=== PATIENT | male | born 1945 | race African-American/Black ===

== ENCOUNTER 2020-02-10 11:44 | Emergency (ER) | payer OTHER, MEDICARE ==
[2020-02-10 11:50] VITALS: BMI 29.7
--- NOTE | 2020-02-10 12:19 | PDOC ---
History of Present Illness - General Chief Complaint: Palpitations Stated Complaint: CHEST DISCOMFORT History Source: Patient Exam Limitations: No Limitations - History of Present Illness Initial Comments: 02/10/20 12:18 HPI: This is a 74 y/o male with a PMH of HTN and prostate cancer in remission who is presenting to the ED because of intermittent palpitations for the past few days. He is unsure what brings the palpitations on, but states that sometimes he has had them whenever he sits up from a laying down position. He denies any alleviating factors. He previously had palpitations many years ago when he started taking Flomax, but hasn't changed his dose recently. The episodes last a few minutes, do not radiate, are not exacerbated by exertion, are not accompanied by N/V, diaphoresis, or SOB. Denies any previous CT, but did have a stress test many years ago. ROS: GENERAL/CONSTITUTIONAL: No fever/chills. No weakness. HEAD, EYES, EARS, NOSE AND THROAT: No change in vision. No ear pain or discharge. No sore throat. CARDIOVASCULAR: No chest pain or shortness of breath. Admits to palpitations. RESPIRATORY: No cough, wheezing, or hemoptysis. GASTROINTESTINAL: No nausea, vomiting MUSCULOSKELETAL: No joint or muscle swelling or pain. No neck or back pain. NEUROLOGIC: No headache, vertigo, loss of consciousness, or change in strength/sensation. HEMATOLOGIC/LYMPHATIC: No anemia, easy bleeding, or history of blood clots. PMH: HTN, prostate cancer Social Hx: Denied etoh, tobacco Meds: Atenolol, flomax Allergies: KNDA PE: GENERAL: Awake, alert, and fully oriented, in no acute distress. Patient comfortable in bed. Conversing normally. HEAD: No signs of trauma EYES: PERRLA, EOMI NECK: Normal ROM, supple, no lymphadenopathy, JVD, or masses LUNGS: Breath sounds equal, clear to auscultation bilaterally. No wheezes, and no crackles HEART: Regular rate and rhythm, normal S1 and S2, no murmurs, rubs or gallops ABDOMEN: Soft, nontender, normoactive bowel sounds. EXTREMITIES: Normal range of motion, no edema. NEUROLOGICAL: Cranial nerves II through XII grossly intact. Normal speech, normal gait SKIN: Warm, Dry, normal turgor, no rashes or lesions noted. MDM: 02/10/20 14:12 This is a 74 y/o male with a PMH of HTN and prostate cancer in remission who is presenting to the ED because of intermittent palpitations for the past few days. - Patient hypertensive in ED because he did not take his BP medication last night. He was trying to figure out what might be giving him palpitations. Will give him dose of Atenolol - No previous cardiac hx - Palpitations not brought on by exertion - No accompanied by SOB - CBC, CMP, EKG, Cardiac panel, BNP, TSH - Patient is currently asymptomatic - EKG with no ST elevations or T wave inversions Normal sinus rhythm Vent rate 71bpm CT interval 190ms QRS 102ms QT/QTc 406/441ms - Labs WNL - HEART score of 3 due to age and HTN - 1 minute rhythm strip with no PVC's or other abnormalities - Stable for d/c and follow up with cardiology referral Past History - Medical History Allergies/Adverse Reactions: Allergies Allergy/AdvReac Type Severity Reaction Status Date / Time No Known Allergies Allergy Verified 02/10/20 11:47 Home Medications: Ambulatory Orders Atenolol [Tenormin -] 50 mg PO DAILY 08/07/15 Tamsulosin HCl [Flomax] 0.4 mg PO 02/10/20 Cancer: Yes (PROSTATE) COPD: No HTN: Yes - Immunization History Immunization Up to Date: Yes - Psycho-Social/Smoking History Smoking History: Never smoked - Substance Abuse Hx (Audit-C & DAST Scrn) How often the patient has a drink containing alcohol: Never Score: In Men: 4 or > Positive; In Women: 3 or > Positive: 0 Screen Result (Pos requires Nsg. Audit-10AR): Negative In the last yr the pt used illegal drug/Rx for NonMed reason: No Score: Yes response is considered Positive: 0 Screen Result (Positive result requires Nsg. DAST-10): Negative *Physical Exam - Vital Signs Last Vital Signs Temp Pulse Resp BP Pulse Ox 98.5 F 80 18 189/86 H 100 02/10/20 11:48 02/10/20 11:48 02/10/20 11:48 02/10/20 11:48 02/10/20 11:48 Heart Score/ECG Review - History History: Slightly suspicious - Electrocardiogram EKG: Normal - Age Age: >/= 65 - Risk Factors Risk Factors Heart Score: Yes Hx Hypertension Based on the list above the patient has:: 1-2 risk factors - Troponin Troponin: </= normal limit - Score Heart Score - Total: 3 - ECG Intrepretation Comment:: 02/10/20 13:[address] elevations or T wave inversions Normal sinus rhythm Vent rate 71bpm CT interval 190ms QRS 102ms QT/QTc 406/441ms ED Treatment Course - LABORATORY CBC & Chemistry Diagram: 02/10/20 12:36 02/10/20 12:36 Discharge - Discharge Information Problems reviewed: Yes Clinical Impression/Diagnosis: Palpitations Condition: Good Disposition: HOME - Admission No - Follow up/Referral Referrals: Kia Henson MD [Primary Care Provider] - Wong Ba MD [Staff Physician] - - Patient Discharge Instructions Patient Printed Discharge Instructions: DI for Palpitations Additional Instructions: You came into the ED today because you were having chest palpitations. We did labs to check your heart and everything was normal. HOME CARE INSTRUCTIONS: For the next few days, avoid physical activities that bring on chest pain. Continue physical activities as directed. SEEK IMMEDIATE MEDICAL CARE IF: You have increased chest pain or pain that spreads to your arm, neck, jaw, back, or abdomen. You develop shortness of breath, an increasing cough, or you start coughing up blood. You have severe back or abdominal pain, feel nauseous, or vomit You develop severe weakness, devon nting, or chills. You have a fever. We referred you to a bar machine operator multiple spindle. Please follow-up with him within the next week. - Post Discharge Activity
[2020-02-10 12:48] LABS: BASO % 0.6 % (0-2.0); EOS % 1.1 % (0-4.5); HEMOGLOBIN 14.2 GM/dL (11.7-16.9); LYMPH % 24.4 % (8-40); MCHC 32.9 g/dl (32.0-35.9); MEAN CELL VOLUME 94.2 fl (80-96); MEAN PLT VOLUME 10.7 fl (7.5-11.1); MONO % 6.5 % (3.8-10.2); NEUT % 67.4 % (42.8-82.8); PLATELET COUNT 181 K/MM3 (134-434); RBC 4.57 M/mm3 (4.00-5.60); RDW 15.8 % (11.9-15.9); WHITE BLOOD COUNT 6.7 K/mm3 (4.0-10.0)
[2020-02-10] MEDS ORDERED: ATENOLOL 25 MG TABLET (FP) PO ONE (12:59)
[2020-02-10 13:00] LABS: INR 1.08 (0.83-1.09); PROTHROMBIN TIME (PATIENT) 12.8 SEC (9.7-13.0)
[2020-02-10] MEDS ORDERED: ATENOLOL 50 MG TABLET (FP) PO ONE (13:00)
[2020-02-10] MEDS ORDERED: ATENOLOL 25 MG TABLET (FP) ONE (13:02)
[2020-02-10 13:03] LABS: ACTIVATED PTT 30.5 SECONDS (25.2-36.5)
--- NOTE | 2020-02-10 13:37 | PDOC ---
Attending Attestation - Resident Resident Name: Juanita Mike - ED Attending Attestation I have performed the following: I have examined & evaluated the patient, The case was reviewed & discussed with the resident, I agree w/resident's findings & plan - HPI HPI: 02/10/20 13:32 74-year-old high functioning male with history of hypertension well-controlled on atenolol presents with intermittent palpitations for a few days. Patient describes a fleeting sensation of "heart skips a beat" occasionally over the last 2 days, predominantly when going from sitting to standing. The episode lasts a second and then resolves, he is otherwise asymptomatic and denies any lightheadedness/syncope/chest pain/shortness of breath/persistent palpitations. No recent dehydration, no recent stimulant intake, no recent medication changes. Patient has had similar symptoms in the past but correlated it with taking an extra dose of his Flomax, because he has not taken any additional doses recently and felt the symptoms he presents for evaluation. Denies any leg swelling, has no exercise limitations at baseline. He has never seen a turbine engineer, never had a Holter monitor or stress test. - Physicial Exam PE: 02/10/20 13:33 Elevated blood pressure in the setting of missing his morning dose of atenolol, otherwise afebrile with normal vitals. Well-appearing standing by stretcher No jaundice or pallor, moist mucosa Heart is regular with occasional premature beat palpated twice during history, patient was relatively asymptomatic Lungs are clear No leg swelling or calf tenderness - Medical Decision Making 02/10/20 13:35 74-year-old male with fleeting sensation of palpitation with positional changes, no associated findings on history or exam to suggest ACS or CHF. Presentation could be most consistent with premature contractions, presumably benign. Check electrolytes and troponin Chest x-ray shows new nodule, patient has no known risk factors, provided chest x-ray report and will follow up with PCP Repeat EKG in attempt to capture premature contraction, initial EKG shows sinus rhythm at 71 with normal intervals Reassess and disposition accordingly 02/10/20 14:57 labs wnl, rhythm strip did not capture premature beats feels well, no red flags. agrees with d/c plan and cards f/u for holter, PCP f/u for cxr finding. understands return criteria. no indication for emergent ACS/syncope workup Heart Score/ECG Review #1 ECG reviewed & interpreted by me at: 12:01 General ECG Interpretation: Sinus Rhythm, Normal Rate (71), Normal Intervals (qtc 441), No acute ischemic changes Discharge - Discharge Information Problems reviewed: Yes Clinical Impression/Diagnosis: Palpitations Condition: Good Disposition: HOME - Follow up/Referral Referrals: Kia Henson MD [Primary Care Provider] - Wong Ba MD [Staff Physician] - - Patient Discharge Instructions Patient Printed Discharge Instructions: DI for Palpitations Additional Instructions: You came into the ED today because you were having chest palpitations. We did labs to check your heart and everything was normal. HOME CARE INSTRUCTIONS: For the next few days, avoid physical activities that bring on chest pain. Continue physical activities as directed. SEEK IMMEDIATE MEDICAL CARE IF: You have increased chest pain or pain that spreads to your arm, neck, jaw, back, or abdomen. You develop shortness of breath, an increasing cough, or you start coughing up blood. You have severe back or abdominal pain, feel nauseous, or vomit You develop severe weakness, fainting, or chills. You have a fever. We referred you to a turbine engineer. Please follow-up with him within the next week. - Post Discharge Activity
[2020-02-10 13:40] LABS: ALBUMIN 3.5 g/dl (3.4-5.0); ALK PHOS 99 U/L (45-117); ANION GAP 6 MMOL/L (8-16); BILIRUBIN,TOTAL 0.4 mg/dL (0.2-1); BLOOD UREA NITROGEN 18.9 mg/dL (7-18); CALCIUM 8.7 mg/dL (8.5-10.1); CHLORIDE 109 mmol/L (98-107); CO2 27 mmol/L (21-32); CREATININE 0.9 mg/dL (0.55-1.3); GLUCOSE,RANDOM 105 mg/dL (74-106); N-TERMINAL BNP 162.4 pg/ml (5-450); SGOT/AST 12 U/L (15-37); SGPT/ALT 12 U/L (13-61); SODIUM 142 mmol/L (136-145); TOT PROT 7.5 g/dl (6.4-8.2)
[2020-02-10 15:18] VITALS: BP 175/80; PULSE 76; TEMP 98.1
--- NOTE | 2020-02-10 17:33 | EKG ---
Test Reason : Blood Pressure : / mmHG Vent. Rate : 071 BPM Atrial Rate : 071 BPM P-R Int : 190 ms QRS Dur : 102 ms QT Int : 406 ms P-R-T Axes : 048 076 059 degrees QTc Int : 441 ms NORMAL SINUS RHYTHM NORMAL ECG Confirmed by MD JARAMILLO GREGORY ([id number]) on 02/10/2020 5:33:03 PM Referred By: Confirmed By:DOUGLAS JARAMILLO MD
== END 2020-02-10 15:18 | disposition home or self-care (01) ==
LOC: JER 11:44
DX: R00.2 Palpitations (principal)
CPT/HCPCS: 36415; 71045-TC-FY; 80053; 83880; 84443; 84484; 85025; 85610; 85730; 93005; 93010; 99285-25